=== PATIENT | female | born 1975 | race Caucasian/White ===

== ENCOUNTER 2021-09-12 06:19 | Day surgery (SDC) | payer OTHER, SELFPAY ==
[~2021-09-12] VITALS: Ht 160 cm; Wt 57.2 kg
[2021-09-12] MEDS ORDERED: diphenhydrAMINE 50 MG/ML VIAL ONE (08:06)
[2021-09-12] MEDS ORDERED: MIDAZOLAM 5 MG/5 ML VIAL ONE (08:07)
[2021-09-12] MEDS ORDERED: fentaNYL citrate 0.05 MG/ML VIAL ONE (08:07)
[2021-09-12] MEDS ORDERED: LIDOCAINE 2% 100 MG/5 ML UJET TP ONE (08:07)
[2021-09-12] MEDS ORDERED: diphenhydrAMINE 50 MG/ML VIAL IVP ONE (08:19)
[2021-09-12] MEDS ORDERED: fentaNYL citrate 0.05 MG/ML VIAL IVP ONE (14:25)
[2021-09-12] MEDS ORDERED: MIDAZOLAM 2 MG/2 ML VIAL IVP ONE (14:25)
== END 2021-09-12 09:30 | disposition home or self-care (01) ==
LOC: MDS 06:19 → MMU 06:20 → MDS 09:30
PROVIDERS: ATTEND Internal Medicine Gastroenterology
DX: Z12.11 Encounter for screening for malignant neoplasm of colon (principal); Z80.0 Family history of malignant neoplasm of digestive organs; F90.0 Attention-deficit hyperactivity disorder, predominantly inattentive type; F32.9 Major depressive disorder, single episode, unspecified; Z85.41 Personal history of malignant neoplasm of cervix uteri; Z79.899 Other long term (current) drug therapy
CPT/HCPCS: 45378; 81025; 87426; J1200; J2250; J3010